=== PATIENT | male | born 1945 | race Caucasian/White ===

== ENCOUNTER 2018-02-03 17:54 | Emergency (ER) | payer SELFPAY ==
[~2018-02-03] VITALS: Ht 182.9 cm; Wt 63.5 kg
--- NOTE | 2018-02-03 20:27 | NUR ---
PATIENT LEFT WITHOUT BEING SEEN BY [facility]
== END 2018-02-03 20:30 | disposition left against medical advice (07) ==
LOC: ER 17:57
DX: Z53.21 Procedure and treatment not carried out due to patient leaving prior to being seen by health care provider (principal)
CPT/HCPCS: A4663